=== PATIENT | female | born 1960 | race Caucasian/White ===

== ENCOUNTER 2019-06-20 07:30 | Emergency (ER) | payer OTHER, BC ==
[2019-06-20 08:00] VITALS: PULSE 74; TEMP 97.3
[2019-06-20 08:15] LABS: AMPHETAMINES NEGATIVE (NEGATIVE); BARBITUATES NEGATIVE (NEGATIVE); BENZODIAZEPINES NEGATIVE (NEGATIVE); CANNABINOL(THC) NEGATIVE (NEGATIVE); COCAINE(COC) NEGATIVE (NEGATIVE); METHAMPHETAMINES NEGATIVE (NEGATIVE); OPIATES(OPI) NEGATIVE (NEGATIVE); OXYCODONE(OXY) NEGATIVE (NEGATIVE); PROPOXYPHENE(PPX) NEGATIVE (NEGATIVE)
[2019-06-20 09:13] VITALS: BP 107/75; RESP 18; O2SAT 98
== END 2019-06-20 08:45 | disposition home or self-care (01) | DRG 605 ==
LOC: ED 07:30
DX: S80.01XA Contusion of right knee, initial encounter (principal); M25.561 Pain in right knee; W18.09XA Striking against other object with subsequent fall, initial encounter
CPT/HCPCS: 73562; 80305; 99283